=== PATIENT | female | born 1930 | race African-American/Black ===

== ENCOUNTER 2016-09-15 11:13 | Inpatient (IN) | payer OTHER ==
[~2016-09-15] VITALS: Ht 157.5 cm; Wt 52.6 kg
[~2016-09-15 11:13] MED LIST: CHOL5000 PO; HYDR12.58 PO; IBUP-1027 PO; LOSA50TA6 PO; POTA20TA12 PO; QUET25TA PO; TRAM50TA PO
[2016-09-15] MEDS ORDERED: FAMOTIDINE 20 MG/2 ML VIAL IVP ONE (12:00)
[2016-09-15] MEDS ORDERED: ONDANSETRON PF 4 MG/2 ML VIAL. IV ONE (12:00)
[2016-09-15] MEDS ORDERED: IV NORMAL SALINE 500ML BAG 500 ML IV ONE (12:00)
[2016-09-15 12:31] LABS: BASO # 0.1 x10^3/uL (0.0-0.2); BASO % 1 % (0-3); EOS % 3 % (0-3); HEMATOCRIT 37.5 % (36.0-47.0); HEMOGLOBIN 12.7 g/dL (12.0-15.5); LYMPH % 15 % (24-48); MEAN CORPUSCULAR HEMOGLOBIN 30 pg (25-35); MEAN CORPUSCULAR HGB CONC 34 g/dL (31-37); MEAN CORPUSCULAR VOLUME 89 fL (79-100); MONO % 7 % (0-9); NEUT % 74 % (31-73); PLATELET COUNT 230 x10^3/uL (140-400); RED BLOOD COUNT 4.22 x10^6/uL (3.50-5.40); RED CELL DISTRIBUTION WIDTH 14.2 % (11.5-14.5); WHITE BLOOD COUNT 6.3 x10^3/uL (4.0-11.0)
[2016-09-15 12:39] LABS: CALCIUM 8.3 mg/dL (8.5-10.1); CREATININE 0.8 mg/dL (0.6-1.0); GFR 82.5; INR 1.2 (0.8-1.1); POTASSIUM 3.1 mmol/L (3.5-5.1); PROTHROMBIN TIME PATIENT 14.8 SEC (11.7-14.0)
[2016-09-15 12:45] LABS: ALBUMIN 3.5 g/dL (3.4-5.0); TOTAL BILIRUBIN 0.4 mg/dL (0.2-1.0)
[2016-09-15 12:51] LABS: NEG OBC FOB NEG; POS OBC FOB POS
[2016-09-15] MEDS ORDERED: CONTRAST GIVEN MC PRN (13:15)
[2016-09-15] MEDS ORDERED: IOHEXOL 300 MG/ML 75 ML VIAL IV ONE (13:30)
[2016-09-15] MEDS ORDERED: ONDANSETRON PF 4 MG/2 ML VIAL. IV PRN (14:30)
[2016-09-15] MEDS ORDERED: fentaNYL PF VIAL 100 MCG/2 ML VIAL IV PRN (14:30)
--- NOTE | 2016-09-15 14:34 | PHYS DOC ---
Past Medical History Past Medical History: Dementia, High Cholesterol Past Surgical History: No Surgical History Alcohol Use: None Drug Use: None Adult General Chief Complaint Chief Complaint: RECTAL BLEED HPI HPI Patient is a 86 year old female who presents with upper GI bleed. The patient is a poor historian, is accompanied by her friend who is her DPOA who is providing most of the history. Reportedly she has several day history of upper abdominal pain associated with a single episode of "large volume" hemoptysis 3 days ago. Today she was seen by her PCP Dr. Jones, found to have heme positive stools & referred here for further evaluation. She denies fevers/ chills, chest pain, shortness of breath, has not noticed hematochezia or melena , denies dysuria/hematuria. She denies use of blood thinners, no previous GI bleed. Review of Systems Review of Systems Constitutional: Denies fever or chills HENT: Denies nasal congestion or sore throat Respiratory: Denies cough or shortness of breath Cardiovascular: Denies chest pain or edema GI: Reports abdominal pain, nausea, vomiting, hematemesis, denies bloody stools or diarrhea : Denies dysuria or hematuria Musculoskeletal: Denies back pain or joint pain Integument: Denies rash or skin lesions Neurologic: Denies headache, focal weakness or sensory changes Current Medications Current Medications Current Medications Medications (Trade) Dose Ordered Sig/Johnathan Start Time Stop Time Status Last Admin Dose Admin Famotidine (Pepcid) 20 mg 1X ONCE 09/15/16 12:00 09/15/16 12:01 DC 09/15/16 11:58 20 MG Ondansetron HCl (Zofran) 4 mg 1X ONCE 09/15/16 12:00 09/15/16 12:01 DC 09/15/16 11:58 4 MG Sodium Chloride 500 ml @ 0 mls/hr 1X ONCE 09/15/16 12:00 09/15/16 12:01 DC 09/15/16 11:58 500 MLS/HR Allergies Allergies Allergies Coded Allergies Type Severity Reaction Last Updated Verified No Known Drug Allergies 12/04/13 No Physical Exam Physical Exam Constitutional: Well developed, well nourished, no acute distress, non-toxic appearance. HENT: Normocephalic, atraumatic, bilateral external ears normal, oropharynx moist, nose normal. Eyes: conjunctiva normal, no discharge. Neck: supple, no stridor. Cardiovascular: RRR, no murmurs, no edema. Lungs & Thorax: LCTAB, no wheezing, no respiratory distress. Abdomen: soft, diffuse upper abdominal tenderness without rebound/guarding, nondistended. Rectal: no fissure or hemorrhoid visualized, low tone, stool not grossly bloody on glove. Skin: Warm, dry, no erythema, no rash. Back: No CVA tenderness. Extremities: No tenderness, no edema. Neurologic: Alert and oriented to person & place, mild confusion, poor historian , no focal deficits noted. Psychologic: Affect normal, judgement normal, mood normal. Current Patient Data Vital Signs Vital Signs Date Time Temp Pulse Resp B/P (MAP) Pulse Ox O2 Delivery O2 Flow Rate FiO2 09/15/16 12:55 52 160/68 (98) 100 Room Air 09/15/16 11:24 97.9 18 97.9 Lab Values Laboratory Tests Test 09/15/16 11:40 09/15/16 12:15 Stool Occult Blood Positive (NEG) White Blood Count 6.3 x10^3/uL (4.0-11.0) Red Blood Count 4.22 x10^6/uL (3.50-5.40) Hemoglobin 12.7 g/dL (12.0-15.5) Hematocrit 37.5 % (36.0-47.0) Mean Corpuscular Volume 89 fL (79-100) Mean Corpuscular Hemoglobin 30 pg (25-35) Mean Corpuscular Hemoglobin Concent 34 g/dL (31-37) Red Cell Distribution Width 14.2 % (11.5-14.5) Platelet Count 230 x10^3/uL (140-400) Neutrophils (%) (Auto) 74 % (31-73) H Lymphocytes (%) (Auto) 15 % (24-48) L Monocytes (%) (Auto) 7 % (0-9) Eosinophils (%) (Auto) 3 % (0-3) Basophils (%) (Auto) 1 % (0-3) Neutrophils # (Auto) 4.7 x10^3uL (1.8-7.7) Lymphocytes # (Auto) 1.0 x10^3/uL (1.0-4.8) Monocytes # (Auto) 0.4 x10^3/uL (0.0-1.1) Eosinophils # (Auto) 0.2 x10^3/uL (0.0-0.7) Basophils # (Auto) 0.1 x10^3/uL (0.0-0.2) Prothrombin Time 14.8 SEC (11.7-14.0) H Prothrombin Time INR 1.2 (0.8-1.1) H PTT 34 SEC (24-38) Sodium Level 143 mmol/L (136-145) Potassium Level 3.1 mmol/L (3.5-5.1) L Chloride Level 108 mmol/L (98-107) H Carbon Dioxide Level 26 mmol/L (21-32) Anion Gap 9 (6-14) Blood Urea Nitrogen 12 mg/dL (7-20) Creatinine 0.8 mg/dL (0.6-1.0) Estimated GFR (Cockcroft-Gault) 82.5 BUN/Creatinine Ratio 15 (6-20) Glucose Level 95 mg/dL (70-99) Calcium Level 8.3 mg/dL (8.5-10.1) L Total Bilirubin 0.4 mg/dL (0.2-1.0) Aspartate Amino Transferase (AST) 19 U/L (15-37) Alanine Aminotransferase (ALT) 15 U/L (14-59) Alkaline Phosphatase 60 U/L (46-116) Troponin I Quantitative < 0.017 ng/mL (0.000-0.055) Total Protein 7.0 g/dL (6.4-8.2) Albumin 3.5 g/dL (3.4-5.0) Albumin/Globulin Ratio 1.0 (1.0-1.7) Lipase 254 U/L (73-393) Laboratory Tests 09/15/16 12:15 Laboratory Tests 09/15/16 12:15 EKG EKG interpreted by me: NSR rate 54, no acute ST/T wave changes, normal intervals, no ectopy.[] Radiology/Procedures Radiology/Procedures CT abdomen/pelvis pending at time of admission[] Course & Med Decision Making Course & Med Decision Making Pertinent Labs and Imaging studies reviewed. (See chart for details) The patient presents with reported hematemesis now with heme positive stools. Vitals stable actually low normal heart rate & elevated BP. She has nonfocal tenderness in abdomen. Hemoglobin stable, hemoccult positive here as well. CT pending at time of admission. Gave IV fluids, famotidine, zofran. She is quite well appearing but would have difficulty recognizing worsening condition or need for another evaluation based on her baseline mental status. I did discuss with Dr. Galvan who agrees to admit to inpatient status. She is being admitted in stable condition. [] Dragon Disclaimer Dragon Disclaimer This electronic medical record was generated, in whole or in part, using a voice recognition dictation system. Departure Departure Impression: Primary Impression: Upper GI bleed Disposition: ADMITTED INPATIENT Condition: STABLE CLAUDIA OBRIEN MD Sep 15, 2016 14:34
--- NOTE | 2016-09-15 14:35 | RAD ---
CT abdomen and pelvis without contrast 09/15/2016 Indication: Rectal bleeding and vomiting for 3 days. Comparison: MRI pelvis 06/19/2015. Technique: Helical CT acquisition of the abdomen and pelvis was obtained without intravenous contrast. Coronal and sagittal reformations were obtained. PQRS Compliance Statement: One or more of the following individualized dose reduction techniques were utilized for this examination: 1. Automated exposure control 2. Adjustment of the mA and/or kV according to patient size 3. Use of iterative reconstruction technique Findings: Abdomen and pelvis: Heart size is normal with partial visualization of coronary artery calcifications. There is normal linear scarring and/or atelectasis in the lung bases. Evaluation of the solid abdominal pelvic viscera, lymphadenopathy and vasculature is limited in the absence of intravenous contrast. Unenhanced contour of the liver unremarkable with a few tiny probable calcified granulomas. Cholelithiasis including a peripherally calcified gallstone at the neck measuring 2.4 cm without gallbladder wall thickening. Unenhanced contours of the spleen, adrenal glands, pancreas and kidneys are grossly unremarkable. Abdominal aorta is normal in caliber with moderate calcified atheromatous disease. Small and large bowel loops are normal in caliber without obstruction. There is a moderate stool ball in the rectal fault with a thin crescent of gas density anteriorly and posteriorly. No significant perirectal fat stranding. Moderate sigmoid diverticulosis without evidence for diverticulitis. Appendix is normal in appearance. No abdominal free fluid. There is a small sliding-type hiatal hernia. There is a lobulated appearance to the uterus with partially calcified and probable noncalcified fibroids. No iliac or inguinal lymphadenopathy. No pelvic free fluid. Mildly distended nonopacified urinary bladder within normal limits. There is diffuse generalized osteopenia. There is cortical thickening and trabeculation throughout the visualized proximal femur extending to the femoral neck. Prior methylmethacrylate installation into the left sacral ala. Moderate degenerative disc disease at L5-S1. Impression: 1. Moderate rectal stool ball with surrounding crescent of gas which may be intraluminal interposed between the stool and the rectal wall, however gas dissecting into the rectal wall from stercoral colitis cannot be definitively excluded. 2. Cholelithiasis without evidence for cholecystitis.
[2016-09-15 15:00] VITALS: BP 118/65
[2016-09-15] MEDS ORDERED: IV NORMAL SALINE 1000ML BAG 1,000 ML IV SCH (15:00)
--- NOTE | 2016-09-15 15:11 | PDOC2 ---
GI CONSULT Reason For Consult: Upper GI Bleed HPI: HPI: Pt seen in ER, alone in room, planned admission to regular floor. 86 y/o AA female w/ dementia, history from chart and staff. Bloody emesis 3 days ago, positive hemoccult w/ PCP. Hemoccult also positive here w/ normal Hgb and BUN. CT A/P notable for cholelithiasis, stool ball in rectal vault, sigmoid diverticulosis. Home meds list ibuprofen. She denies pain, otherwise says "yeah!" and laughs. Notes indicate DPOA here earlier reported pain. PMH: PMH: from chart - dementia, HLD, cholelithiasis, osteoporosis, sacral fracture, vertebroplasty FH: Family History: No pertinent hx Social History: ALCOHOL: none Drugs: None ROS: Denies pain. Vitals: Vitals: Vital Signs Date Time Temp Pulse Resp B/P (MAP) Pulse Ox O2 Delivery O2 Flow Rate FiO2 09/15/16 11:24 97.9 52 18 158/71 (100) 100 Room Air 97.9 Labs: Labs: Laboratory Tests Test 09/15/16 11:40 09/15/16 12:15 Stool Occult Blood Positive (NEG) White Blood Count 6.3 x10^3/uL (4.0-11.0) Red Blood Count 4.22 x10^6/uL (3.50-5.40) Hemoglobin 12.7 g/dL (12.0-15.5) Hematocrit 37.5 % (36.0-47.0) Mean Corpuscular Volume 89 fL (79-100) Mean Corpuscular Hemoglobin 30 pg (25-35) Mean Corpuscular Hemoglobin Concent 34 g/dL (31-37) Red Cell Distribution Width 14.2 % (11.5-14.5) Platelet Count 230 x10^3/uL (140-400) Neutrophils (%) (Auto) 74 % (31-73) Lymphocytes (%) (Auto) 15 % (24-48) Monocytes (%) (Auto) 7 % (0-9) Eosinophils (%) (Auto) 3 % (0-3) Basophils (%) (Auto) 1 % (0-3) Neutrophils # (Auto) 4.7 x10^3uL (1.8-7.7) Lymphocytes # (Auto) 1.0 x10^3/uL (1.0-4.8) Monocytes # (Auto) 0.4 x10^3/uL (0.0-1.1) Eosinophils # (Auto) 0.2 x10^3/uL (0.0-0.7) Basophils # (Auto) 0.1 x10^3/uL (0.0-0.2) Prothrombin Time 14.8 SEC (11.7-14.0) Prothromb Time International Ratio 1.2 (0.8-1.1) Activated Partial Thromboplast Time 34 SEC (24-38) Sodium Level 143 mmol/L (136-145) Potassium Level 3.1 mmol/L (3.5-5.1) Chloride Level 108 mmol/L (98-107) Carbon Dioxide Level 26 mmol/L (21-32) Anion Gap 9 (6-14) Blood Urea Nitrogen 12 mg/dL (7-20) Creatinine 0.8 mg/dL (0.6-1.0) Estimated GFR (Cockcroft-Gault) 82.5 BUN/Creatinine Ratio 15 (6-20) Glucose Level 95 mg/dL (70-99) Calcium Level 8.3 mg/dL (8.5-10.1) Total Bilirubin 0.4 mg/dL (0.2-1.0) Aspartate Amino Transf (AST/SGOT) 19 U/L (15-37) Alanine Aminotransferase (ALT/SGPT) 15 U/L (14-59) Alkaline Phosphatase 60 U/L (46-116) Troponin I Quantitative < 0.017 ng/mL (0.000-0.055) Total Protein 7.0 g/dL (6.4-8.2) Albumin 3.5 g/dL (3.4-5.0) Albumin/Globulin Ratio 1.0 (1.0-1.7) Lipase 254 U/L (73-393) Allergies: Coded Allergies: No Known Drug Allergies (Unverified , 12/04/13) Medications: Current Medications Medications (Trade) Dose Ordered Sig/Johnathan Route PRN Reason Start Time Stop Time Status Last Admin Dose Admin Sodium Chloride 500 ml @ 0 mls/hr 1X ONCE IV 09/15/16 12:00 09/15/16 12:01 DC 09/15/16 11:58 Famotidine (Pepcid) 20 mg 1X ONCE IVP 09/15/16 12:00 09/15/16 12:01 DC 09/15/16 11:58 Ondansetron HCl (Zofran) 4 mg 1X ONCE IV 09/15/16 12:00 09/15/16 12:01 DC 09/15/16 11:58 Imaging: Imaging: CT A/P w/o contrast Abdomen and pelvis: Heart size is normal with partial visualization of coronary artery calcifications. There is normal linear scarring and/or atelectasis in the lung bases. Evaluation of the solid abdominal pelvic viscera, lymphadenopathy and vasculature is limited in the absence of intravenous contrast. Unenhanced contour of the liver unremarkable with a few tiny probable calcified granulomas. Cholelithiasis including a peripherally calcified gallstone at the neck measuring 2.4 cm without gallbladder wall thickening. Unenhanced contours of the spleen, adrenal glands, pancreas and kidneys are grossly unremarkable. Abdominal aorta is normal in caliber with moderate calcified atheromatous disease. Small and large bowel loops are normal in caliber without obstruction. There is a moderate stool ball in the rectal fault with a thin crescent of gas density anteriorly and posteriorly. No significant perirectal fat stranding. Moderate sigmoid diverticulosis without evidence for diverticulitis. Appendix is normal in appearance. No abdominal free fluid. There is a small sliding-type hiatal hernia. There is a lobulated appearance to the uterus with partially calcified and probable noncalcified fibroids. No iliac or inguinal lymphadenopathy. No pelvic free fluid. Mildly distended nonopacified urinary bladder within normal limits. There is diffuse generalized osteopenia. There is cortical thickening and trabeculation throughout the visualized proximal femur extending to the femoral neck. Prior methylmethacrylate installation into the left sacral ala. Moderate degenerative disc disease at L5-S1. Impression: 1. Moderate rectal stool ball with surrounding crescent of gas which may be intraluminal interposed between the stool and the rectal wall, however gas dissecting into the rectal wall from stercoral colitis cannot be definitively excluded. 2. Cholelithiasis without evidence for cholecystitis. PE: GEN: NAD, smiling HEENT: Atraumatic, PERRL LUNGS: clear anteriorly HEART: RRR ABD: NABS, S/ND/NT EXTREMITY: No edema NEURO/PSYCH: confused A/P: A/P: ?hematemesis, hemoccult positive stool -limited history, apparently occurred three days ago -normal Hgb and BUN -?pain ?NSAID use Abnormal CT -stool ball in rectum Dementia -- D/w Dr. Chin - possible NSAID use and hematemesis, will plan for EGD tomorrow afternoon to r/o UGI source/PUD. Clear tonight w/ IV H2 oumou, NPO at midnight. Will also order enema considering CT results. D/w LITA. RENE PEREZ Sep 15, 2016 15:11
--- NOTE | 2016-09-15 15:52 | EKG ---
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
--- NOTE | 2016-09-15 15:54 | EKG ---
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
[2016-09-15] MEDS: HALOPERIDOL LACTATE 5 MG/ML VIAL. IVP PRN (15:58)
[2016-09-15] MEDS ORDERED: HALOPERIDOL LACTATE 5 MG/ML VIAL. IVP PRN (16:15)
[2016-09-15] MEDS ORDERED: QUEtiapine 25 MG TABLET. PO PRN (16:30)
[2016-09-15] MEDS ORDERED: SODIUM PHOSPHATES 19/7GM 133 ML ENEMA. PR ONE (16:30)
--- NOTE | 2016-09-15 18:17 | HP ---
ADMIT DATE: 09/15/2016 CHIEF COMPLAINT: UGI bleed. HISTORY OF PRESENT ILLNESS: Histories were obtained from chart and Emergency Room physician as patient is completely demented and family member not here. HISTORY OF PRESENT ILLNESS: The patient is an 86-year-old -[place] woman, who reportedly came from home to her primary care physician with DPOA with complaints of hematemesis x 1 three days ago. PCP apparently referred her to the Emergency Room for further workup. Further details are somewhat sketchy at this point. In the ER; however, she was found with an occult positive stool. No reports of melena as well as hemoglobin of greater than 12. She was therefore admitted for presumed upper GI bleed. PAST MEDICAL HISTORY: Hypertension and dementia. FAMILY HISTORY: Unknown. SOCIAL HISTORY: No apparent toxic habits. ALLERGIES: No known drug allergies. HOME MEDICATIONS: Reconciled with MAR. REVIEW OF SYSTEMS: Unable to obtain as the patient answers only with giggling. PHYSICAL EXAMINATION: VITAL SIGNS: From today show a blood pressure of 118/65, heart rate of 47, respiratory rate at 18. She is afebrile. GENERAL: This is an 86-year-old -[place] woman, pleasantly demented, awake, in no acute distress. HEENT: Shows no scleral icterus. Oral mucosa is pink and moist. NECK: Supple, without any lymphadenopathy. LUNGS: Clear. HEART: Has regular rate and rhythm. ABDOMEN: Has positive bowel sounds, soft, nontender. EXTREMITIES: Show no edema. SKIN: Warm, soft and dry without any rash. LABORATORY DATA: CBC with a WBC of 6.3, hemoglobin 12.7, platelets of 230. Chemistries with a BUN and creatinine of 12 and 0.8, potassium at 3.1. Troponin is negative. LFTs normal. Urine, 11-20 wbc, few bacteria. Drug screen is negative. IMAGING: Abdomen and pelvis CT without contrast shows moderate rectal stool ball with surrounding crescent of gas, which may be intraluminal interposed between stool and rectal wall, cholelithiasis without evidence of cholecystitis. ASSESSMENT AND PLAN: The patient is an 86-year-old -[place] woman, who appears quite demented and potentially an upper gastrointestinal bleed with hematemesis x 1 three days ago. Her hemoglobin is perfectly stable. We will admit. GI has been consulted by the Emergency Room already. For her dementia, she appears to have been on various psych medications in the past without a definitive diagnosis. We will continue those for now. We will arrange to get her to [facility], once medical issues have been resolved. She is currently impacted. We will get Fleet enema and bowel regimen to get resolved. YESENIA COOPER MD DR: UR/nts JOB#: [id number] / [id number] FARAZ
[2016-09-15 18:44] VITALS: BP 118/65
[2016-09-15 19:00] VITALS: BP 143/50
[2016-09-15] MEDS: FAMOTIDINE 20 MG/2 ML VIAL IVP SCH (20:44)
[2016-09-15 22:42] VITALS: BP 129/62
--- NOTE | 2016-09-16 00:45 | ACF ---
Admission Forms Criteria GASTROINTESTINAL BLEEDING Clinical Indications for Inpatient Care (Place 'X' for any and all applicable criteria): Ongoing inpatient care may be indicated for gastrointestinal bleeding with ANY ONE of the following (4)(20)(21)(22)(23)(24): [ ]I. Active bleeding (eg, fresh voluminous blood in emesis or nasogastric aspirate, or per rectum) [X]II. Hemodynamic instability [ ]III. Anticoagulation therapy or coagulopathy ((eg, advanced liver disease, irreversible anticoagulation) [ ]IV. Ischemic colitis (22) [ ]V. Endoscopy showing arterial bleeding, adherent clot, nonbleeding visible vessel, varices, flat red spots, ulcer size greater than 2 cm, or portal hypertensive gastropathy [ ]. High-risk low platelet count [ ]VII. Anemia requiring inpatient care as indicated by ANY ONE of the following a)[ ] Cognitive impairment b)[ ] Syncope c)[ ] Heart failure d)[ ] Chest pain e)[ ] Dyspnea f)[ ] Other findings suggesting inadequate perfusion (eg, peripheral or myocardial ischemia, end organ dysfunction) [ ]VIII. High-risk low platelet count [ ]IX. Suspected variceal cause of bleeding as indicated by ANY ONE of the following(27)(28): a)[ ] Known varices b)[ ] Hepatomegaly or splenomegaly c)[ ] Ascites d)[ ] Jaundice or scleral icterus e)[ ] History of liver disease (eg, cirrhosis) f)[ ] Physical findings of portal hypertension (eg, caput medusa) g)[ ] Comorbid disorder indicating risk for portal vein thrombosis (eg , abdominal surgery, sepsis, shock, exchange transfusion, prior umbilical vein catheterization) Extended stay may be needed until ALL of the following are present(20)(38)(47): [ ]a) Hemodynamic stability [ ]b) No evidence of active bleeding (eg, stable Hematocrit) [ ]c) Platelet count, prothrombin time, and partial thromboplastin time acceptable for next level of care [ ]d) Surgical or other acute intervention not needed [ ]e) Oral hydration and diet tolerated The original [employer] content created by [employer] has been revised. The portions of the content which have been revised are identified through the use of italic text or in bold, and [employer] has neither reviewed nor approved the modified material. All other unmodified content is copyright [facility]. Please see references footnoted in the original [facility] edition 2016 Admission Criteria Met?: Yes BELLA CARROLL Sep 16, 2016 00:45
[2016-09-16 05:06] LABS: BASO % 1 % (0-3); EOS % 1 % (0-3); HEMATOCRIT 36.7 % (36.0-47.0); HEMOGLOBIN 12.7 g/dL (12.0-15.5); LYMPH # 0.9 x10^3/uL (1.0-4.8); LYMPH % 14 % (24-48); MEAN CORPUSCULAR HEMOGLOBIN 30 pg (25-35); MEAN CORPUSCULAR HGB CONC 35 g/dL (31-37); MEAN CORPUSCULAR VOLUME 87 fL (79-100); MONO % 8 % (0-9); NEUT % 76 % (31-73); PLATELET COUNT 229 x10^3/uL (140-400); RED BLOOD COUNT 4.21 x10^6/uL (3.50-5.40); RED CELL DISTRIBUTION WIDTH 14.5 % (11.5-14.5)
[2016-09-16 05:21] LABS: CALCIUM 8.3 mg/dL (8.5-10.1); CREATININE 0.9 mg/dL (0.6-1.0)
[2016-09-16 05:31] LABS: POTASSIUM 2.8 mmol/L (3.5-5.1)
[2016-09-16] MEDS ORDERED: POTASSIUM CHLORIDE 20 MEQ TABLET.ER. PO ONE ×2 (06:15→12:00)
[2016-09-16] MEDS: POTASSIUM CHLORIDE 10MEQ 100 ML IV SCH ×4 (06:50→11:00)
[2016-09-16 07:00] VITALS: BP 143/67
[2016-09-16] MEDS: CHOLECALCIFEROL (VITAMIN D3) 5,000 UNIT CAPSULE PO SCH (09:00)
[2016-09-16] MEDS: FAMOTIDINE 20 MG/2 ML VIAL IVP SCH ×2 (09:58→22:13)
[2016-09-16 11:00] VITALS: BP 131/70
--- NOTE | 2016-09-16 11:36 | PDOC ---
PROGRESS NOTES Chief Complaint Chief Complaint mild upper gastrointestinal bleed hematemesis . marked dementia, chronic encephalopathy hypokalemia For her dementia, w. behavioral d/o, on psych medications in the past without a definitive diagnosis constipation tx History of Present Illness History of Present Illness maybe EGD replace potassium as able cont home meds Vitals Vitals Vital Signs Date Time Temp Pulse Resp B/P (MAP) Pulse Ox O2 Delivery O2 Flow Rate FiO2 09/16/16 11:00 97.5 68 16 131/70 (90) 100 Room Air 97.5 Physical Exam General: Cooperative, Other (disoriented 0/4) Lungs: Clear, Other Abdomen: Normal bowel sounds, Soft Extremities: No clubbing Skin: No rashes Labs LABS Laboratory Tests Test 09/15/16 11:40 09/15/16 12:15 09/16/16 04:20 Stool Occult Blood Positive (NEG) White Blood Count 6.3 x10^3/uL (4.0-11.0) 6.0 x10^3/uL (4.0-11.0) Red Blood Count 4.22 x10^6/uL (3.50-5.40) 4.21 x10^6/uL (3.50-5.40) Hemoglobin 12.7 g/dL (12.0-15.5) 12.7 g/dL (12.0-15.5) Hematocrit 37.5 % (36.0-47.0) 36.7 % (36.0-47.0) Mean Corpuscular Volume 89 fL (79-100) 87 fL (79-100) Mean Corpuscular Hemoglobin 30 pg (25-35) 30 pg (25-35) Mean Corpuscular Hemoglobin Concent 34 g/dL (31-37) 35 g/dL (31-37) Red Cell Distribution Width 14.2 % (11.5-14.5) 14.5 % (11.5-14.5) Platelet Count 230 x10^3/uL (140-400) 229 x10^3/uL (140-400) Neutrophils (%) (Auto) 74 % (31-73) 76 % (31-73) Lymphocytes (%) (Auto) 15 % (24-48) 14 % (24-48) Monocytes (%) (Auto) 7 % (0-9) 8 % (0-9) Eosinophils (%) (Auto) 3 % (0-3) 1 % (0-3) Basophils (%) (Auto) 1 % (0-3) 1 % (0-3) Neutrophils # (Auto) 4.7 x10^3uL (1.8-7.7) 4.6 x10^3uL (1.8-7.7) Lymphocytes # (Auto) 1.0 x10^3/uL (1.0-4.8) 0.9 x10^3/uL (1.0-4.8) Monocytes # (Auto) 0.4 x10^3/uL (0.0-1.1) 0.5 x10^3/uL (0.0-1.1) Eosinophils # (Auto) 0.2 x10^3/uL (0.0-0.7) 0.1 x10^3/uL (0.0-0.7) Basophils # (Auto) 0.1 x10^3/uL (0.0-0.2) 0.0 x10^3/uL (0.0-0.2) Prothrombin Time 14.8 SEC (11.7-14.0) Prothromb Time International Ratio 1.2 (0.8-1.1) Activated Partial Thromboplast Time 34 SEC (24-38) Sodium Level 143 mmol/L (136-145) 145 mmol/L (136-145) Potassium Level 3.1 mmol/L (3.5-5.1) 2.8 mmol/L (3.5-5.1) Chloride Level 108 mmol/L (98-107) 107 mmol/L (98-107) Carbon Dioxide Level 26 mmol/L (21-32) 30 mmol/L (21-32) Anion Gap 9 (6-14) 8 (6-14) Blood Urea Nitrogen 12 mg/dL (7-20) 7 mg/dL (7-20) Creatinine 0.8 mg/dL (0.6-1.0) 0.9 mg/dL (0.6-1.0) Estimated GFR (Cockcroft-Gault) 82.5 72.0 BUN/Creatinine Ratio 15 (6-20) Glucose Level 95 mg/dL (70-99) 96 mg/dL (70-99) Calcium Level 8.3 mg/dL (8.5-10.1) 8.3 mg/dL (8.5-10.1) Total Bilirubin 0.4 mg/dL (0.2-1.0) Aspartate Amino Transf (AST/SGOT) 19 U/L (15-37) Alanine Aminotransferase (ALT/SGPT) 15 U/L (14-59) Alkaline Phosphatase 60 U/L (46-116) Troponin I Quantitative < 0.017 ng/mL (0.000-0.055) Total Protein 7.0 g/dL (6.4-8.2) Albumin 3.5 g/dL (3.4-5.0) Albumin/Globulin Ratio 1.0 (1.0-1.7) Lipase 254 U/L (73-393) Assessment and Plan Assessmemt and Plan Problems Medical Problems: (1) Upper GI bleed Status: Acute Problems: Comment Review of Relevant I have reviewed the following items hyacinth (where applicable) has been applied. Labs Laboratory Tests Test 09/15/16 11:40 09/15/16 12:15 09/16/16 04:20 Stool Occult Blood Positive (NEG) White Blood Count 6.3 x10^3/uL (4.0-11.0) 6.0 x10^3/uL (4.0-11.0) Red Blood Count 4.22 x10^6/uL (3.50-5.40) 4.21 x10^6/uL (3.50-5.40) Hemoglobin 12.7 g/dL (12.0-15.5) 12.7 g/dL (12.0-15.5) Hematocrit 37.5 % (36.0-47.0) 36.7 % (36.0-47.0) Mean Corpuscular Volume 89 fL (79-100) 87 fL (79-100) Mean Corpuscular Hemoglobin 30 pg (25-35) 30 pg (25-35) Mean Corpuscular Hemoglobin Concent 34 g/dL (31-37) 35 g/dL (31-37) Red Cell Distribution Width 14.2 % (11.5-14.5) 14.5 % (11.5-14.5) Platelet Count 230 x10^3/uL (140-400) 229 x10^3/uL (140-400) Neutrophils (%) (Auto) 74 % (31-73) 76 % (31-73) Lymphocytes (%) (Auto) 15 % (24-48) 14 % (24-48) Monocytes (%) (Auto) 7 % (0-9) 8 % (0-9) Eosinophils (%) (Auto) 3 % (0-3) 1 % (0-3) Basophils (%) (Auto) 1 % (0-3) 1 % (0-3) Neutrophils # (Auto) 4.7 x10^3uL (1.8-7.7) 4.6 x10^3uL (1.8-7.7) Lymphocytes # (Auto) 1.0 x10^3/uL (1.0-4.8) 0.9 x10^3/uL (1.0-4.8) Monocytes # (Auto) 0.4 x10^3/uL (0.0-1.1) 0.5 x10^3/uL (0.0-1.1) Eosinophils # (Auto) 0.2 x10^3/uL (0.0-0.7) 0.1 x10^3/uL (0.0-0.7) Basophils # (Auto) 0.1 x10^3/uL (0.0-0.2) 0.0 x10^3/uL (0.0-0.2) Prothrombin Time 14.8 SEC (11.7-14.0) Prothromb Time International Ratio 1.2 (0.8-1.1) Activated Partial Thromboplast Time 34 SEC (24-38) Sodium Level 143 mmol/L (136-145) 145 mmol/L (136-145) Potassium Level 3.1 mmol/L (3.5-5.1) 2.8 mmol/L (3.5-5.1) Chloride Level 108 mmol/L (98-107) 107 mmol/L (98-107) Carbon Dioxide Level 26 mmol/L (21-32) 30 mmol/L (21-32) Anion Gap 9 (6-14) 8 (6-14) Blood Urea Nitrogen 12 mg/dL (7-20) 7 mg/dL (7-20) Creatinine 0.8 mg/dL (0.6-1.0) 0.9 mg/dL (0.6-1.0) Estimated GFR (Cockcroft-Gault) 82.5 72.0 BUN/Creatinine Ratio 15 (6-20) Glucose Level 95 mg/dL (70-99) 96 mg/dL (70-99) Calcium Level 8.3 mg/dL (8.5-10.1) 8.3 mg/dL (8.5-10.1) Total Bilirubin 0.4 mg/dL (0.2-1.0) Aspartate Amino Transf (AST/SGOT) 19 U/L (15-37) Alanine Aminotransferase (ALT/SGPT) 15 U/L (14-59) Alkaline Phosphatase 60 U/L (46-116) Troponin I Quantitative < 0.017 ng/mL (0.000-0.055) Total Protein 7.0 g/dL (6.4-8.2) Albumin 3.5 g/dL (3.4-5.0) Albumin/Globulin Ratio 1.0 (1.0-1.7) Lipase 254 U/L (73-393) Laboratory Tests Test 09/15/16 11:40 09/15/16 12:15 09/16/16 04:20 Stool Occult Blood Positive (NEG) White Blood Count 6.3 x10^3/uL (4.0-11.0) 6.0 x10^3/uL (4.0-11.0) Red Blood Count 4.22 x10^6/uL (3.50-5.40) 4.21 x10^6/uL (3.50-5.40) Hemoglobin 12.7 g/dL (12.0-15.5) 12.7 g/dL (12.0-15.5) Hematocrit 37.5 % (36.0-47.0) 36.7 % (36.0-47.0) Mean Corpuscular Volume 89 fL (79-100) 87 fL (79-100) Mean Corpuscular Hemoglobin 30 pg (25-35) 30 pg (25-35) Mean Corpuscular Hemoglobin Concent 34 g/dL (31-37) 35 g/dL (31-37) Red Cell Distribution Width 14.2 % (11.5-14.5) 14.5 % (11.5-14.5) Platelet Count 230 x10^3/uL (140-400) 229 x10^3/uL (140-400) Neutrophils (%) (Auto) 74 % (31-73) 76 % (31-73) Lymphocytes (%) (Auto) 15 % (24-48) 14 % (24-48) Monocytes (%) (Auto) 7 % (0-9) 8 % (0-9) Eosinophils (%) (Auto) 3 % (0-3) 1 % (0-3) Basophils (%) (Auto) 1 % (0-3) 1 % (0-3) Neutrophils # (Auto) 4.7 x10^3uL (1.8-7.7) 4.6 x10^3uL (1.8-7.7) Lymphocytes # (Auto) 1.0 x10^3/uL (1.0-4.8) 0.9 x10^3/uL (1.0-4.8) Monocytes # (Auto) 0.4 x10^3/uL (0.0-1.1) 0.5 x10^3/uL (0.0-1.1) Eosinophils # (Auto) 0.2 x10^3/uL (0.0-0.7) 0.1 x10^3/uL (0.0-0.7) Basophils # (Auto) 0.1 x10^3/uL (0.0-0.2) 0.0 x10^3/uL (0.0-0.2) Prothrombin Time 14.8 SEC (11.7-14.0) Prothromb Time International Ratio 1.2 (0.8-1.1) Activated Partial Thromboplast Time 34 SEC (24-38) Sodium Level 143 mmol/L (136-145) 145 mmol/L (136-145) Potassium Level 3.1 mmol/L (3.5-5.1) 2.8 mmol/L (3.5-5.1) Chloride Level 108 mmol/L (98-107) 107 mmol/L (98-107) Carbon Dioxide Level 26 mmol/L (21-32) 30 mmol/L (21-32) Anion Gap 9 (6-14) 8 (6-14) Blood Urea Nitrogen 12 mg/dL (7-20) 7 mg/dL (7-20) Creatinine 0.8 mg/dL (0.6-1.0) 0.9 mg/dL (0.6-1.0) Estimated GFR (Cockcroft-Gault) 82.5 72.0 BUN/Creatinine Ratio 15 (6-20) Glucose Level 95 mg/dL (70-99) 96 mg/dL (70-99) Calcium Level 8.3 mg/dL (8.5-10.1) 8.3 mg/dL (8.5-10.1) Total Bilirubin 0.4 mg/dL (0.2-1.0) Aspartate Amino Transf (AST/SGOT) 19 U/L (15-37) Alanine Aminotransferase (ALT/SGPT) 15 U/L (14-59) Alkaline Phosphatase 60 U/L (46-116) Troponin I Quantitative < 0.017 ng/mL (0.000-0.055) Total Protein 7.0 g/dL (6.4-8.2) Albumin 3.5 g/dL (3.4-5.0) Albumin/Globulin Ratio 1.0 (1.0-1.7) Lipase 254 U/L (73-393) Medications Current Medications Sodium Chloride 500 ml @ 0 mls/hr 1X ONCE IV Last administered on 09/15/16 11 :58; Start 09/15/16 at 12:00; Stop 09/15/16 at 12:01; Status DC Famotidine (Pepcid) 20 mg 1X ONCE IVP Last administered on 09/15/16 11:58; Start 09/15/16 at 12:00; Stop 09/15/16 at 12:01; Status DC Ondansetron HCl (Zofran) 4 mg 1X ONCE IV Last administered on 09/15/16 11:58 ; Start 09/15/16 at 12:00; Stop 09/15/16 at 12:01; Status DC Iohexol (Omnipaque 300 Mg/ml) 75 ml 1X ONCE IV ; Start 09/15/16 at 13:30; Stop 09/15/16 at 13:31; Status DC Info (Do NOT chart on this entry -- for MONITORING) 1 each PRN DAILY PRN MC SEE COMMENTS; Start 09/15/16 at 13:15; Stop 09/17/16 at 13:14 Ondansetron HCl (Zofran) 4 mg PRN Q8HRS PRN IV NAUSEA/VOMITING; Start 09/15/16 at 14:30; Stop 09/15/16 at 16:16; Status DC Fentanyl Citrate (Fentanyl 2ml Vial) 25 mcg PRN Q2HR PRN IV PAIN; Start at 14:30; Stop 09/15/16 at 16:16; Status DC Sodium Chloride 1,000 ml @ 100 mls/hr Q10H IV Last administered on 09/15/16 15:07; Start 09/15/16 at 15:00; Stop 09/15/16 at 16:16; Status DC Famotidine (Pepcid) 20 mg BID IVP Last administered on 09/16/16 09:58; Start 09/15/16 at 21:00 Sodium Monofluorophosphate (Fleet Adult) 133 ml 1X ONCE VT Last administered on 09/15/16 17:18; Start 09/15/16 at 16:30; Stop 09/15/16 at 16:31; Status DC Haloperidol Lactate (Haldol) 5 mg PRN Q6HRS PRN IVP AGITATION Last administered on 09/15/16 15:58; Start 09/15/16 at 16:00 Haloperidol Lactate (Haldol) 5 mg PRN Q6HRS PRN IVP AGITATION; Start 09/15/16 at 16:15; Status Cancel Vitamin D (Vitamin D3) 5,000 unit DAILY PO ; Start 09/16/16 at 09:00 Quetiapine Fumarate (SEROquel) 12.5 mg PRN Q6HRS PRN PO AGITATION; Start at 16:30 Potassium Chloride (Klor-Con) 40 meq 1X ONCE PO Last administered on 06:49; Start 09/16/16 at 06:15; Stop 09/16/16 at 06:16; Status DC Potassium Chloride 100 ml @ 100 mls/hr Q1H IV Last administered on 09/16/16 09:58; Start 09/16/16 at 06:30; Stop 09/16/16 at 10:29; Status DC Potassium Chloride (Klor-Con) 20 meq DAILYWBKFT PO ; Start 09/17/16 at 08:00 Potassium Chloride (Klor-Con) 40 meq 1X ONCE PO ; Start 09/16/16 at 12:00; Stop 09/16/16 at 12:01 Active Scripts Active Vitamin D3 (Cholecalciferol (Vitamin D3)) 5,000 Unit Capsule 5,000 Unit PO DAILY Tramadol Hcl 50 Mg Tablet 50 Mg PO PRN Q6HRS PRN Quetiapine Fumarate 25 Mg Tablet 12.5 Mg PO PRN Q6HRS PRN Ibuprofen 400 Mg Tablet 400 Mg PO PRN Q6HRS PRN Reported Potassium Chloride 20 Meq Tab.er.prt 1 Tab PO DAILY Vitals/I & O Vital Sign - Last 24 Hours 09/15/16 09/15/16 09/15/16 09/15/16 12:25 12:55 14:25 14:51 Pulse 50 52 52 B/P (MAP) 162/72 (102) 160/68 (98) 172/67 (102) Pulse Ox 100 100 100 O2 Delivery Room Air Room Air Room Air Room Air 09/15/16 09/15/16 09/15/16 09/15/16 15:00 18:44 19:00 20:00 Temp 98.2 98.2 98.1 98.2 98.2 98.1 Pulse 47 47 74 Resp 18 16 B/P (MAP) 118/65 (82) 118/65 (82) 143/50 (81) Pulse Ox 98 98 99 O2 Delivery Room Air Room Air Room Air 09/15/16 09/16/16 09/16/16 22:42 07:00 11:00 Temp 98.5 96.8 97.5 98.5 96.8 97.5 Pulse 68 61 68 Resp 16 16 16 B/P (MAP) 129/62 (84) 143/67 (92) 131/70 (90) Pulse Ox 98 99 100 O2 Delivery Room Air Room Air Room Air Intake and Output 09/15/16 09/15/16 09/16/16 15:00 23:00 07:00 Intake Total 500 ml 850 ml Output Total 600 ml Balance 500 ml 250 ml EDIS KELLY MD Sep 16, 2016 11:36
[2016-09-16 12:58] LABS: BASO # 0.1 x10^3/uL (0.0-0.2); BASO % 1 % (0-3); EOS % 0 % (0-3); HEMOGLOBIN 13.3 g/dL (12.0-15.5); LYMPH # 0.9 x10^3/uL (1.0-4.8); LYMPH % 10 % (24-48); MEAN CORPUSCULAR HEMOGLOBIN 29 pg (25-35); MEAN CORPUSCULAR HGB CONC 33 g/dL (31-37); MEAN CORPUSCULAR VOLUME 90 fL (79-100); MONO % 7 % (0-9); NEUT % 81 % (31-73); PLATELET COUNT 253 x10^3/uL (140-400); RED BLOOD COUNT 4.57 x10^6/uL (3.50-5.40); RED CELL DISTRIBUTION WIDTH 14.5 % (11.5-14.5); WHITE BLOOD COUNT 8.2 x10^3/uL (4.0-11.0)
[2016-09-16] MEDS: HALOPERIDOL LACTATE 5 MG/ML VIAL. IVP PRN ×2 (13:50→22:14)
[2016-09-16 15:00] VITALS: BP 151/86
[2016-09-16 16:03] VITALS: BP 139/71
--- NOTE | 2016-09-16 16:58 | PDOC ---
G I PROGRESS NOTE Objective Unable to obtain consent for EGD. Review of Relevant I have reviewed the following items hyacinth (where applicable) has been applied. Labs Laboratory Tests Test 09/15/16 11:40 09/15/16 12:15 09/16/16 04:20 09/16/16 12:05 Stool Occult Blood Positive (NEG) White Blood Count 6.3 x10^3/uL (4.0-11.0) 6.0 x10^3/uL (4.0-11.0) 8.2 x10^3/uL (4.0-11.0) Red Blood Count 4.22 x10^6/uL (3.50-5.40) 4.21 x10^6/uL (3.50-5.40) 4.57 x10^6/uL (3.50-5.40) Hemoglobin 12.7 g/dL (12.0-15.5) 12.7 g/dL (12.0-15.5) 13.3 g/dL (12.0-15.5) Hematocrit 37.5 % (36.0-47.0) 36.7 % (36.0-47.0) 41.0 % (36.0-47.0) Mean Corpuscular Volume 89 fL (79-100) 87 fL (79-100) 90 fL (79-100) Mean Corpuscular Hemoglobin 30 pg (25-35) 30 pg (25-35) 29 pg (25-35) Mean Corpuscular Hemoglobin Concent 34 g/dL (31-37) 35 g/dL (31-37) 33 g/dL (31-37) Red Cell Distribution Width 14.2 % (11.5-14.5) 14.5 % (11.5-14.5) 14.5 % (11.5-14.5) Platelet Count 230 x10^3/uL (140-400) 229 x10^3/uL (140-400) 253 x10^3/uL (140-400) Neutrophils (%) (Auto) 74 % (31-73) 76 % (31-73) 81 % (31-73) Lymphocytes (%) (Auto) 15 % (24-48) 14 % (24-48) 10 % (24-48) Monocytes (%) (Auto) 7 % (0-9) 8 % (0-9) 7 % (0-9) Eosinophils (%) (Auto) 3 % (0-3) 1 % (0-3) 0 % (0-3) Basophils (%) (Auto) 1 % (0-3) 1 % (0-3) 1 % (0-3) Neutrophils # (Auto) 4.7 x10^3uL (1.8-7.7) 4.6 x10^3uL (1.8-7.7) 6.6 x10^3uL (1.8-7.7) Lymphocytes # (Auto) 1.0 x10^3/uL (1.0-4.8) 0.9 x10^3/uL (1.0-4.8) 0.9 x10^3/uL (1.0-4.8) Monocytes # (Auto) 0.4 x10^3/uL (0.0-1.1) 0.5 x10^3/uL (0.0-1.1) 0.6 x10^3/uL (0.0-1.1) Eosinophils # (Auto) 0.2 x10^3/uL (0.0-0.7) 0.1 x10^3/uL (0.0-0.7) 0.0 x10^3/uL (0.0-0.7) Basophils # (Auto) 0.1 x10^3/uL (0.0-0.2) 0.0 x10^3/uL (0.0-0.2) 0.1 x10^3/uL (0.0-0.2) Prothrombin Time 14.8 SEC (11.7-14.0) Prothromb Time International Ratio 1.2 (0.8-1.1) Activated Partial Thromboplast Time 34 SEC (24-38) Sodium Level 143 mmol/L (136-145) 145 mmol/L (136-145) Potassium Level 3.1 mmol/L (3.5-5.1) 2.8 mmol/L (3.5-5.1) Chloride Level 108 mmol/L (98-107) 107 mmol/L (98-107) Carbon Dioxide Level 26 mmol/L (21-32) 30 mmol/L (21-32) Anion Gap 9 (6-14) 8 (6-14) Blood Urea Nitrogen 12 mg/dL (7-20) 7 mg/dL (7-20) Creatinine 0.8 mg/dL (0.6-1.0) 0.9 mg/dL (0.6-1.0) Estimated GFR (Cockcroft-Gault) 82.5 72.0 BUN/Creatinine Ratio 15 (6-20) Glucose Level 95 mg/dL (70-99) 96 mg/dL (70-99) Calcium Level 8.3 mg/dL (8.5-10.1) 8.3 mg/dL (8.5-10.1) Total Bilirubin 0.4 mg/dL (0.2-1.0) Aspartate Amino Transf (AST/SGOT) 19 U/L (15-37) Alanine Aminotransferase (ALT/SGPT) 15 U/L (14-59) Alkaline Phosphatase 60 U/L (46-116) Troponin I Quantitative < 0.017 ng/mL (0.000-0.055) Total Protein 7.0 g/dL (6.4-8.2) Albumin 3.5 g/dL (3.4-5.0) Albumin/Globulin Ratio 1.0 (1.0-1.7) Lipase 254 U/L (73-393) Laboratory Tests Test 09/16/16 04:20 09/16/16 12:05 White Blood Count 6.0 x10^3/uL (4.0-11.0) 8.2 x10^3/uL (4.0-11.0) Red Blood Count 4.21 x10^6/uL (3.50-5.40) 4.57 x10^6/uL (3.50-5.40) Hemoglobin 12.7 g/dL (12.0-15.5) 13.3 g/dL (12.0-15.5) Hematocrit 36.7 % (36.0-47.0) 41.0 % (36.0-47.0) Mean Corpuscular Volume 87 fL (79-100) 90 fL (79-100) Mean Corpuscular Hemoglobin 30 pg (25-35) 29 pg (25-35) Mean Corpuscular Hemoglobin Concent 35 g/dL (31-37) 33 g/dL (31-37) Red Cell Distribution Width 14.5 % (11.5-14.5) 14.5 % (11.5-14.5) Platelet Count 229 x10^3/uL (140-400) 253 x10^3/uL (140-400) Neutrophils (%) (Auto) 76 % (31-73) 81 % (31-73) Lymphocytes (%) (Auto) 14 % (24-48) 10 % (24-48) Monocytes (%) (Auto) 8 % (0-9) 7 % (0-9) Eosinophils (%) (Auto) 1 % (0-3) 0 % (0-3) Basophils (%) (Auto) 1 % (0-3) 1 % (0-3) Neutrophils # (Auto) 4.6 x10^3uL (1.8-7.7) 6.6 x10^3uL (1.8-7.7) Lymphocytes # (Auto) 0.9 x10^3/uL (1.0-4.8) 0.9 x10^3/uL (1.0-4.8) Monocytes # (Auto) 0.5 x10^3/uL (0.0-1.1) 0.6 x10^3/uL (0.0-1.1) Eosinophils # (Auto) 0.1 x10^3/uL (0.0-0.7) 0.0 x10^3/uL (0.0-0.7) Basophils # (Auto) 0.0 x10^3/uL (0.0-0.2) 0.1 x10^3/uL (0.0-0.2) Sodium Level 145 mmol/L (136-145) Potassium Level 2.8 mmol/L (3.5-5.1) Chloride Level 107 mmol/L (98-107) Carbon Dioxide Level 30 mmol/L (21-32) Anion Gap 8 (6-14) Blood Urea Nitrogen 7 mg/dL (7-20) Creatinine 0.9 mg/dL (0.6-1.0) Estimated GFR (Cockcroft-Gault) 72.0 Glucose Level 96 mg/dL (70-99) Calcium Level 8.3 mg/dL (8.5-10.1) Medications Current Medications Sodium Chloride 500 ml @ 0 mls/hr 1X ONCE IV Last administered on 09/15/16 11 :58; Start 09/15/16 at 12:00; Stop 09/15/16 at 12:01; Status DC Famotidine (Pepcid) 20 mg 1X ONCE IVP Last administered on 09/15/16 11:58; Start 09/15/16 at 12:00; Stop 09/15/16 at 12:01; Status DC Ondansetron HCl (Zofran) 4 mg 1X ONCE IV Last administered on 09/15/16 11:58 ; Start 09/15/16 at 12:00; Stop 09/15/16 at 12:01; Status DC Iohexol (Omnipaque 300 Mg/ml) 75 ml 1X ONCE IV ; Start 09/15/16 at 13:30; Stop 09/15/16 at 13:31; Status DC Info (Do NOT chart on this entry -- for MONITORING) 1 each PRN DAILY PRN MC SEE COMMENTS; Start 09/15/16 at 13:15; Stop 09/17/16 at 13:14 Ondansetron HCl (Zofran) 4 mg PRN Q8HRS PRN IV NAUSEA/VOMITING; Start 09/15/16 at 14:30; Stop 09/15/16 at 16:16; Status DC Fentanyl Citrate (Fentanyl 2ml Vial) 25 mcg PRN Q2HR PRN IV PAIN; Start at 14:30; Stop 09/15/16 at 16:16; Status DC Sodium Chloride 1,000 ml @ 100 mls/hr Q10H IV Last administered on 09/15/16 15:07; Start 09/15/16 at 15:00; Stop 09/15/16 at 16:16; Status DC Famotidine (Pepcid) 20 mg BID IVP Last administered on 09/16/16 09:58; Start 09/15/16 at 21:00 Sodium Monofluorophosphate (Fleet Adult) 133 ml 1X ONCE OK Last administered on 09/15/16 17:18; Start 09/15/16 at 16:30; Stop 09/15/16 at 16:31; Status DC Haloperidol Lactate (Haldol) 5 mg PRN Q6HRS PRN IVP AGITATION Last administered on 09/16/16 13:50; Start 09/15/16 at 16:00 Haloperidol Lactate (Haldol) 5 mg PRN Q6HRS PRN IVP AGITATION; Start 09/15/16 at 16:15; Status Cancel Vitamin D (Vitamin D3) 5,000 unit DAILY PO ; Start 09/16/16 at 09:00 Quetiapine Fumarate (SEROquel) 12.5 mg PRN Q6HRS PRN PO AGITATION; Start at 16:30 Potassium Chloride (Klor-Con) 40 meq 1X ONCE PO Last administered on 06:49; Start 09/16/16 at 06:15; Stop 09/16/16 at 06:16; Status DC Potassium Chloride 100 ml @ 100 mls/hr Q1H IV Last administered on 09/16/16 11:00; Start 09/16/16 at 06:30; Stop 09/16/16 at 10:29; Status DC Potassium Chloride (Klor-Con) 20 meq DAILYWBKFT PO ; Start 09/17/16 at 08:00 Potassium Chloride (Klor-Con) 40 meq 1X ONCE PO Last administered on 15:07; Start 09/16/16 at 12:00; Stop 09/16/16 at 12:01; Status DC Active Scripts Active Vitamin D3 (Cholecalciferol (Vitamin D3)) 5,000 Unit Capsule 5,000 Unit PO DAILY Tramadol Hcl 50 Mg Tablet 50 Mg PO PRN Q6HRS PRN Quetiapine Fumarate 25 Mg Tablet 12.5 Mg PO PRN Q6HRS PRN Ibuprofen 400 Mg Tablet 400 Mg PO PRN Q6HRS PRN Reported Potassium Chloride 20 Meq Tab.er.prt 1 Tab PO DAILY Vitals/I & O Vital Sign - Last 24 Hours 09/15/16 09/15/16 09/15/16 09/15/16 18:44 19:00 20:00 22:42 Temp 98.2 98.1 98.5 98.2 98.1 98.5 Pulse 47 74 68 Resp 16 16 B/P (MAP) 118/65 (82) 143/50 (81) 129/62 (84) Pulse Ox 98 99 98 O2 Delivery Room Air Room Air Room Air 09/16/16 09/16/16 09/16/16 09/16/16 07:00 08:20 11:00 15:00 Temp 96.8 97.5 98.4 96.8 97.5 98.4 Pulse 61 68 81 Resp 16 16 18 B/P (MAP) 143/67 (92) 131/70 (90) 151/86 (107) Pulse Ox 99 100 95 O2 Delivery Room Air Room Air Room Air Room Air 09/16/16 16:03 Temp 97.6 97.6 Pulse 78 Resp 16 B/P (MAP) 139/71 (93) Pulse Ox 96 O2 Delivery Room Air Intake and Output 09/15/16 09/15/16 09/16/16 15:00 23:00 07:00 Intake Total 500 ml 850 ml Output Total 600 ml Balance 500 ml 250 ml Problem List Problems Medical Problems: (1) Upper GI bleed Status: Acute Assessment Clinically, bleeding seems nil. Plan of Care Note Would be acceptable to me to treat empirically with PPI and feed. YOBANY DEL TORO MD Sep 16, 2016 16:58
[2016-09-16 19:00] VITALS: BP 141/71
[2016-09-16 22:29] LABS: BASO # 0.1 x10^3/uL (0.0-0.2); BASO % 1 % (0-3); EOS % 1 % (0-3); HEMATOCRIT 38.2 % (36.0-47.0); HEMOGLOBIN 12.7 g/dL (12.0-15.5); LYMPH % 14 % (24-48); MEAN CORPUSCULAR HEMOGLOBIN 30 pg (25-35); MEAN CORPUSCULAR HGB CONC 33 g/dL (31-37); MEAN CORPUSCULAR VOLUME 89 fL (79-100); MONO % 10 % (0-9); NEUT % 74 % (31-73); PLATELET COUNT 221 x10^3/uL (140-400); RED BLOOD COUNT 4.29 x10^6/uL (3.50-5.40); RED CELL DISTRIBUTION WIDTH 14.3 % (11.5-14.5); WHITE BLOOD COUNT 7.2 x10^3/uL (4.0-11.0)
[2016-09-16 22:47] VITALS: BP 156/76
[2016-09-17 05:43] LABS: BASO # 0.1 x10^3/uL (0.0-0.2); BASO % 1 % (0-3); EOS % 1 % (0-3); HEMATOCRIT 37.5 % (36.0-47.0); HEMOGLOBIN 12.8 g/dL (12.0-15.5); LYMPH # 0.9 x10^3/uL (1.0-4.8); LYMPH % 14 % (24-48); MEAN CORPUSCULAR HEMOGLOBIN 30 pg (25-35); MEAN CORPUSCULAR HGB CONC 34 g/dL (31-37); MEAN CORPUSCULAR VOLUME 88 fL (79-100); MONO % 10 % (0-9); NEUT % 74 % (31-73); PLATELET COUNT 236 x10^3/uL (140-400); RED BLOOD COUNT 4.26 x10^6/uL (3.50-5.40); RED CELL DISTRIBUTION WIDTH 14.6 % (11.5-14.5); WHITE BLOOD COUNT 6.7 x10^3/uL (4.0-11.0)
[2016-09-17 07:08] VITALS: BP 145/77
[2016-09-17 07:41] LABS: CALCIUM 9.3 mg/dL (8.5-10.1); CREATININE 0.7 mg/dL (0.6-1.0); GFR 96.2
[2016-09-17 07:45] LABS: POTASSIUM 4.3 mmol/L (3.5-5.1)
[2016-09-17] MEDS ORDERED: POTASSIUM CHLORIDE 20 MEQ TABLET.ER. PO SCH (08:00)
[2016-09-17] MEDS: FAMOTIDINE 20 MG/2 ML VIAL IVP SCH (08:53)
[2016-09-17] MEDS: CHOLECALCIFEROL (VITAMIN D3) 5,000 UNIT CAPSULE PO SCH (09:00)
[2016-09-17] MEDS ORDERED: IV RINGERS,LACTATED 1000ML 1,000 ML IV SCH (09:59)
[2016-09-17] MEDS ORDERED: MORPHINE SULFATE 2 MG/ML DISP.SYRIN. IV PRN (10:00)
[2016-09-17] MEDS ORDERED: PROCHLORPERAZINE 10 MG/2 ML VIAL. IV PRN (10:00)
[2016-09-17] MEDS ORDERED: LIDOCAINE 1% 1 ML SYRINGE. ID PRN (10:00)
[2016-09-17] MEDS ORDERED: fentaNYL PF VIAL 100 MCG/2 ML VIAL IV PRN ×2 (10:00)
[2016-09-17] MEDS ORDERED: HYDROmorphone 2 MG/ML VIAL IV PRN (10:00)
--- NOTE | 2016-09-17 10:48 | PDOC ---
PROGRESS NOTES Chief Complaint Chief Complaint Hematemesis dementia ASSESSMENT AND PLAN: 1. Hematemesis x1: EGD planned for later today 2. Dementia/[facility]-psych: spoke with MushtaqMyrna Burnham; may be amenable to short [facility] for med optimization. per our records, has been on serquel in past. He will bring med list 3. Hypokalemia: repleted. monitor 4. constipation: bowel regimen 5. Prophylaxis: H2B (IV, change to PO) 6. Dispo: would benefit from [facility]. to be d/w PoA History of Present Illness History of Present Illness pleasantly demented, answering "Yeah" to almost every question Vitals Vitals Vital Signs Date Time Temp Pulse Resp B/P (MAP) Pulse Ox O2 Delivery O2 Flow Rate FiO2 09/17/16 07:55 Room Air 09/17/16 07:08 97.9 67 16 145/77 (99) 97 97.9 Physical Exam General: Alert, Cooperative, Other (disoriented 0/4) Heart: Regular rate Lungs: Clear, Other Abdomen: Normal bowel sounds, Soft Extremities: No clubbing Skin: No rashes Labs LABS Laboratory Tests Test 09/16/16 12:05 09/16/16 20:30 09/17/16 05:00 White Blood Count 8.2 x10^3/uL (4.0-11.0) 7.2 x10^3/uL (4.0-11.0) 6.7 x10^3/uL (4.0-11.0) Red Blood Count 4.57 x10^6/uL (3.50-5.40) 4.29 x10^6/uL (3.50-5.40) 4.26 x10^6/uL (3.50-5.40) Hemoglobin 13.3 g/dL (12.0-15.5) 12.7 g/dL (12.0-15.5) 12.8 g/dL (12.0-15.5) Hematocrit 41.0 % (36.0-47.0) 38.2 % (36.0-47.0) 37.5 % (36.0-47.0) Mean Corpuscular Volume 90 fL (79-100) 89 fL (79-100) 88 fL (79-100) Mean Corpuscular Hemoglobin 29 pg (25-35) 30 pg (25-35) 30 pg (25-35) Mean Corpuscular Hemoglobin Concent 33 g/dL (31-37) 33 g/dL (31-37) 34 g/dL (31-37) Red Cell Distribution Width 14.5 % (11.5-14.5) 14.3 % (11.5-14.5) 14.6 % (11.5-14.5) Platelet Count 253 x10^3/uL (140-400) 221 x10^3/uL (140-400) 236 x10^3/uL (140-400) Neutrophils (%) (Auto) 81 % (31-73) 74 % (31-73) 74 % (31-73) Lymphocytes (%) (Auto) 10 % (24-48) 14 % (24-48) 14 % (24-48) Monocytes (%) (Auto) 7 % (0-9) 10 % (0-9) 10 % (0-9) Eosinophils (%) (Auto) 0 % (0-3) 1 % (0-3) 1 % (0-3) Basophils (%) (Auto) 1 % (0-3) 1 % (0-3) 1 % (0-3) Neutrophils # (Auto) 6.6 x10^3uL (1.8-7.7) 5.3 x10^3uL (1.8-7.7) 4.9 x10^3uL (1.8-7.7) Lymphocytes # (Auto) 0.9 x10^3/uL (1.0-4.8) 1.0 x10^3/uL (1.0-4.8) 0.9 x10^3/uL (1.0-4.8) Monocytes # (Auto) 0.6 x10^3/uL (0.0-1.1) 0.7 x10^3/uL (0.0-1.1) 0.7 x10^3/uL (0.0-1.1) Eosinophils # (Auto) 0.0 x10^3/uL (0.0-0.7) 0.1 x10^3/uL (0.0-0.7) 0.1 x10^3/uL (0.0-0.7) Basophils # (Auto) 0.1 x10^3/uL (0.0-0.2) 0.1 x10^3/uL (0.0-0.2) 0.1 x10^3/uL (0.0-0.2) Sodium Level 142 mmol/L (136-145) Potassium Level 4.3 mmol/L (3.5-5.1) Chloride Level 105 mmol/L (98-107) Carbon Dioxide Level 27 mmol/L (21-32) Anion Gap 10 (6-14) Blood Urea Nitrogen 5 mg/dL (7-20) Creatinine 0.7 mg/dL (0.6-1.0) Estimated GFR (Cockcroft-Gault) 96.2 Glucose Level 54 mg/dL (70-99) Calcium Level 9.3 mg/dL (8.5-10.1) YESENIA COOPER MD Sep 17, 2016 10:47
[2016-09-17 11:01] VITALS: BP 144/83
[2016-09-17] MEDS ORDERED: PROPOFOL 20 ML IV ONE (15:09)
[2016-09-17] MEDS ORDERED: LIDOCAINE 2% PF Vial for OR 5 ML VIAL. ONE (15:09)
--- NOTE | 2016-09-17 15:31 | PDOC4 ---
PROCEDURE Procedure EGD Ind: Hematemesis Meds: per anesthesia Findings: E--non-obstructing ring at GE junction. G--few erosions, antrum. Small 2x5mm ulcer, anterior wall, pre-pyloric area w/ o stigmata or high-risk features. D--Normal to second portion. Kristina. well. IMP: Small Antral erosions Non-obstructing ring at GEJ. REC: Given age, etc. would opt for chronic PPI. OK to feed/look toward discharge from GI standpoint. Thanks. YOBANY DEL TORO MD Sep 17, 2016 15:31
[2016-09-17 16:00] VITALS: BP 186/94
[2016-09-17] MEDS ORDERED: PANTOPRAZOLE 40 MG TABLET.DR. PO SCH (16:00)
[2016-09-17 16:15] VITALS: BP 169/79
[2016-09-17] MEDS ORDERED: QUET25TA PO (16:24)
[2016-09-17] MEDS ORDERED: PANT40TA5 PO (16:24)
[2016-09-17 16:45] VITALS: BP 164/86
[2016-09-17 17:15] VITALS: BP 163/82
--- NOTE | 2016-09-18 00:05 | DS ---
DATE OF DISCHARGE: 09/17/2016 CHIEF COMPLAINT: Hematemesis. HOSPITAL COURSE: The patient is an 86-year-old -[place] woman with significant dementia who was brought in by her caregiver with an episode of hematemesis 3 days prior and poor appetite. She herself is completely unable to contribute to the conversation, is quite confused and has absolutely no memory. She was therefore admitted for further evaluation. Her hemoglobin remained completely stable. She did not have any further evidence of bleed. GI consult was obtained and she was endoscopied on 09/17/2016 with findings of a small ulcer. Recommendations for PPI were given. Her dementia was actually quite significant and question of psychiatric underlying disorder was raised as well. The field case manager tried to get her into [facility] was unfortunately unsuccessful with 1 unit not accepting her interim, second not finding her appropriate The patient was therefore discharged with her DPOA to home. Recommendations for no NSAIDs and daily proton pump inhibitors were given. DISCHARGE DATE: 09/17/2016. DISCHARGE EXAMINATION: Please refer to note from same day. DISCHARGE DIAGNOSES: Gastric ulcer, upper gastrointestinal bleed and dementia. DISCHARGE DISPOSITION: To home. DISCHARGE CONDITION: Improved. DISCHARGE MEDICATIONS: Please refer to MAR. DISCHARGE INSTRUCTIONS: The patient will follow up with PCP in 1-2 weeks. YESENIA COOPER MD DR: HELDER/nts JOB#: [id number] / [id number] MARIELLE Tovar MD MTDD
== END 2016-09-17 19:00 | disposition home or self-care (01) | DRG 377 ==
LOC: ER 11:13 → 5 SOUTH 13:11
PROVIDERS: ADMIT Internal Medicine Hematology & Oncology; ATTEND Internal Medicine Hematology & Oncology
PROC: 0DJ08ZZ Inspection of Upper Intestinal Tract, Via Natural or Artificial Opening Endoscopic (ICD-10-PCS; principal; 2016-09-17 15:00)
DX: K92.2 Gastrointestinal hemorrhage, unspecified (principal); G93.49 Other encephalopathy; E87.6 Hypokalemia; E78.5 Hyperlipidemia, unspecified; F03.90 Unspecified dementia, unspecified severity, without behavioral disturbance, psychotic disturbance, mood disturbance, and anxiety; I10 Essential (primary) hypertension; K57.30 Diverticulosis of large intestine without perforation or abscess without bleeding; K59.00 Constipation, unspecified; M81.0 Age-related osteoporosis without current pathological fracture; K25.9 Gastric ulcer, unspecified as acute or chronic, without hemorrhage or perforation
CPT/HCPCS: 36415; 74176; 80048; 80053; 82274; 83690; 84484; 85027; 85610; 85730; 86850; 86900; 86901; 93005; 96361; 96374; 96375; J1630; J2001; J2405; J2704; J3480; J7030; J7040; J7120; S0028; 99285-25

== ENCOUNTER 2016-09-25 09:08 | Emergency (ER) | payer OTHER ==
[~2016-09-25] VITALS: Ht 160 cm; Wt 52.6 kg
[~2016-09-25 09:08] MED LIST changes: +PANT40TA5 PO
[2016-09-25 09:20] VITALS: BP 135/61
--- NOTE | 2016-09-25 09:57 | PHYS DOC ---
Past Medical History Past Medical History: Dementia, High Cholesterol Past Surgical History: No Surgical History Additional Past Surgical Histo: unknown Alcohol Use: None Drug Use: None Adult General Chief Complaint Chief Complaint: MECHANICAL FALL HPI HPI Patient is a pleasant 86-year-old female with dementia who is a now 2 with a history of fall from standing earlier today striking her head on a desk. From the family member providing history to EMS and EMS providing history to me patient did not have any loss of conscious, there is a small area of bleeding that has now stopped and a scab is formed. Patient denies any headache, chest pain, abdominal pain, focal neurologic deficit, before after the fall. Family is also concerned about her right shoulder. At this point patient has no complaint of right shoulder pain as full range of motion without issue. Patient has no complaints is smiling there at her baseline GCS of 14. sHe complains of no neck pain, she is on no blood thinners, she complains of no other complaints. She is resting comfortably in no pain Review of Systems Review of Systems Constitutional: Denies fever or chills [] Eyes: Denies change in visual acuity, redness, or eye pain [] HENT: Denies nasal congestion or sore throat [] Respiratory: Denies cough or shortness of breath [] Cardiovascular: No additional information not addressed in HPI [] GI: Denies abdominal pain, nausea, vomiting, bloody stools or diarrhea [] : Denies dysuria or hematuria [] Musculoskeletal: Denies back pain or joint pain [] Integument: Denies rash or skin lesions [] Neurologic: Denies headache, focal weakness or sensory changes [] Endocrine: Denies polyuria or polydipsia [] Allergies Allergies Allergies Coded Allergies Type Severity Reaction Last Updated Verified No Known Drug Allergies 09/17/16 No Physical Exam Physical Exam This patient's vital signs were reviewed which were within normal limits. Constitutional: Well developed, well nourished, no acute distress, non-toxic appearance. [] HENT: Normocephalic, has a small abrasion superior to the left year with no active bleeding. No lacerations needing repair. There is clotted blood that is dried., bilateral external ears normal, oropharynx moist, no oral exudates, nose normal. [] Eyes: PERRLA, EOMI, conjunctiva normal, no discharge. [] Neck: Normal range of motion, no tenderness, supple, no stridor. [] Cardiovascular:Heart rate regular rhythm, no murmur [] Lungs & Thorax: Bilateral breath sounds clear to auscultation [] Abdomen: Bowel sounds normal, soft, no tenderness, no masses, no pulsatile masses. [] Skin: Warm, dry, no erythema, no rash. [] Back: No tenderness, no CVA tenderness. [] Extremities: No tenderness, no cyanosis, no clubbing, ROM intact, no edema. [] Clearly has full range of motion at the right shoulder without issue Neurologic: Alert and oriented X 2, normal motor function, normal sensory function, no focal deficits noted as great strength in all of her extremities + 5 out of 5 with no obvious deficits. Psychologic: Affect normal, judgement normal, mood normal. [] Current Patient Data Vital Signs Vital Signs Date Time Temp Pulse Resp B/P (MAP) Pulse Ox O2 Delivery O2 Flow Rate FiO2 09/25/16 09:20 98.7 66 16 135/61 (85) 97 Room Air 98.7 EKG EKG [] Radiology/Procedures Radiology/Procedures [] IMAGING REPORT Signed PATIENT: NABIL PARR ACCOUNT: [id number] : 1930 LOCATION: ER AGE: 86 SEX: F EXAM STATUS: PRE ER ORD. PHYSICIAN: SUKUMAR KU MD REASON: fall PROCEDURE: CT HEAD AND CERVICAL SPINE WO Indication head and neck injury pain. Head and cervical spine were evaluated. Images of the cervical spine were reformatted in the coronal and sagittal planes. The head is compared to an examination 06/17/2015. CT head: Findings. No acute or significant calvarial finding is seen. The visualized paranasal sinuses appear unremarkable. There is no subdural or epidural hematoma. There is some mild underlying atrophy. There is increased lucency in the deep white matter compatible with microvascular disease. Physiologic calcification of basal ganglia is noted. There is no mass or midline shift. No hemorrhage is seen. No acute intracranial finding is seen. CT cervical spine: Findings. No acute or significant finding is seen at the lung apices. No significant soft tissue finding is seen in the neck. Review of axial images is negative with regards to any acute finding. Some degenerative changes are noted. Review of reformatted images in the coronal and sagittal planes confirms degenerative change. No acute finding is apparent. IMPRESSION: No acute finding seen in the head. 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 No acute finding seen Course & Med Decision Making Course & Med Decision Making Pertinent Labs and Imaging studies reviewed. (See chart for details) Impression presents with a history of dementia and a head injury to the left. She is on no medical blood thinners at this time although she is not a great historian she will have her head and neck imaged. She has no evidence of injury to the right shoulder or upper extremity DVT as worried and expressed by the family at home. She is resting comfortably with no complaints. [] Time is now 9:50 AM she still has no complaints the wound on the side of her head on the left was cleaned up there is no step-offs or crepitus patient has no wound requiring repair at this time. Is now 10:22 AM patient is still resting comfortably with no complaints CT head and neck are both without any acute injury or fracture. Patient be discharged home with follow-up with her primary care doctor. Post head injury precautions will be given Dragon Disclaimer Dragon Disclaimer This electronic medical record was generated, in whole or in part, using a voice recognition dictation system. Departure Departure Impression: Primary Impression: Closed head injury Additional Impressions: Dementia Scalp abrasion Disposition: 01 HOME, SELF-CARE Condition: IMPROVED Referrals: MARIELLE RODRIGUEZ MD (PCP) Patient Instructions: Abrasions, Dementia, Head Injury, Adult Additional Instructions: Please return for any new or focal neurologic deficits, altered mental status or if you have any questions or concerns. Problem Qualifiers SUKUMAR KU MD Sep 25, 2016 09:57
--- NOTE | 2016-09-25 10:15 | RAD ---
Indication head and neck injury pain. Head and cervical spine were evaluated. Images of the cervical spine were reformatted in the coronal and sagittal planes. The head is compared to an examination 06/17/2015. CT head: Findings. No acute or significant calvarial finding is seen. The visualized paranasal sinuses appear unremarkable. There is no subdural or epidural hematoma. There is some mild underlying atrophy. There is increased lucency in the deep white matter compatible with microvascular disease. Physiologic calcification of basal ganglia is noted. There is no mass or midline shift. No hemorrhage is seen. No acute intracranial finding is seen. CT cervical spine: Findings. No acute or significant finding is seen at the lung apices. No significant soft tissue finding is seen in the neck. Review of axial images is negative with regards to any acute finding. Some degenerative changes are noted. Review of reformatted images in the coronal and sagittal planes confirms degenerative change. No acute finding is apparent. IMPRESSION: No acute finding seen in the head. 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 No acute finding seen PQRS Compliance Statement: One or more of the following individualized dose reduction techniques were utilized for this examination: 1. Automated exposure control 2. Adjustment of the mA and/or kV according to patient size 3. Use of iterative reconstruction technique
== END 2016-09-25 10:44 | disposition home or self-care (01) ==
LOC: ER 09:08
DX: S00.01XA Abrasion of scalp, initial encounter (principal); F03.90 Unspecified dementia, unspecified severity, without behavioral disturbance, psychotic disturbance, mood disturbance, and anxiety; E78.00 Pure hypercholesterolemia, unspecified; W01.198A Fall on same level from slipping, tripping and stumbling with subsequent striking against other object, initial encounter; Y93.89 Activity, other specified; Y92.89 Other specified places as the place of occurrence of the external cause; Y99.8 Other external cause status
CPT/HCPCS: 70450; 72125; 99284-25